=== PATIENT | male | born 1950 | race Caucasian/White ===

== ENCOUNTER 2021-09-23 12:52 | Emergency (ER) | payer MEDICARE, OTHER ==
[~2021-09-23] VITALS: Ht 193 cm; Wt 120.5 kg
[2021-09-23 13:00] VITALS: BP 147/82
[2021-09-23 13:42] LABS: BASOPHILS # (AUTO) 0.1 X10'3 (0-0.2); BASOPHILS % (AUTO) 1.3 % (0-1); EOSINOPHILS # (AUTO) 0.2 X10'3 (0-0.9); EOSINOPHILS % (AUTO) 3.3 % (0-6); HEMATOCRIT 41.7 % (42.0-52.0); HEMOGLOBIN 13.3 g/dl (14.0-17.9); LYMPHOCYTES # (AUTO) 1.2 X10'3 (1.1-4.8); LYMPHOCYTES % (AUTO) 21.9 % (21-51); MEAN CORPUSCULAR HEMOGLOBIN 25.6 PG (27.0-31.0); MEAN CORPUSCULAR VOLUME 80.1 FL (78-98); MEAN PLATELET VOLUME 7.1 FL (7.4-10.4); MONOCYTES # (AUTO) 0.6 X10'3 (0-0.9); MONOCYTES % (AUTO) 11.1 % (2-12); NEUTROPHILS # (AUTO) 3.3 X10'3 (1.8-7.7); NEUTROPHILS % (AUTO) 62.4 % (42-75); PLATELET COUNT 284 X10'3 (140-440); RED CELL DISTRIBUTION WIDTH 16.9 % (11.5-14.5); WHITE BLOOD COUNT 5.3 X10'3 (4.5-11.0)
[2021-09-23 13:55] LABS: ALANINE AMINOTRANSFERASE 24 U/L (12-78); ALBUMIN 3.1 G/DL (3.4-5.0); ALBUMIN/GLOBULIN RATIO 0.7 (1.1-1.5); ALKALINE PHOSPHATASE 94 IU/L (46-116); ANION GAP 8 (8-16); ASPARTATE AMINO TRANSFERASE 17 U/L (10-37); BILIRUBIN,TOTAL 0.6 MG/DL (0.1-1.0); BLOOD UREA NITROGEN 25 MG/DL (7-18); BUN/CREATININE RATIO 17.4 (5.4-32.0); CALCIUM 9.2 MG/DL (8.5-10.1); CHLORIDE 102 MMOL/L (99-107); CREATININE 1.44 MG/DL (0.60-1.10); POTASSIUM 3.9 MMOL/L (3.5-5.1); SODIUM 141 MMOL/L (135-145); TOTAL CARBON DIOXIDE 30.7 MMOL/L (24-32); TOTAL PROTEIN 7.6 G/DL (6.4-8.2); eGFR 48 ML/MIN
[2021-09-23 13:57] LABS: GLUCOSE 215 MG/DL (70-104)
[2021-09-23] MEDS ORDERED: MUPI22OI30 TOP (14:09)
[2021-09-23] MEDS ORDERED: CEPH250T PO (14:09)
== END 2021-09-23 14:29 | disposition home or self-care (01) ==
LOC: ER 12:53
DX: L03.115 Cellulitis of right lower limb (principal); E11.9 Type 2 diabetes mellitus without complications; Z79.2 Long term (current) use of antibiotics; Z79.899 Other long term (current) drug therapy; Z89.512 Acquired absence of left leg below knee
CPT/HCPCS: 36415; 80053; 85025; 85651; 99284

== ENCOUNTER 2022-01-02 13:51 | Emergency (ER) | payer MEDICARE ==
[~2022-01-02] VITALS: Ht 190.5 cm; Wt 122.7 kg
[2022-01-02 14:32] VITALS: BP 114/96
== END 2022-01-02 20:04 | disposition left against medical advice (07) ==
LOC: ER 13:52
DX: M79.661 Pain in right lower leg (principal); Z53.21 Procedure and treatment not carried out due to patient leaving prior to being seen by health care provider

== ENCOUNTER 2023-09-07 13:01 | Outpatient (CLI) | payer MEDICARE, OTHER ==
[~2023-09-07] VITALS: Ht 193 cm; Wt 112.9 kg
[2023-09-07 15:03] LABS: BASOPHILS % (AUTO) 0.7 % (0-1); EOSINOPHILS # (AUTO) 0.1 X10'3 (0-0.9); EOSINOPHILS % (AUTO) 4.3 % (0-6); LYMPHOCYTES # (AUTO) 0.4 X10'3 (1.1-4.8); LYMPHOCYTES % (AUTO) 15.5 % (21-51); MEAN CORPUSCULAR HEMOGLOBIN 30.7 PG (27.0-31.0); MEAN PLATELET VOLUME 6.4 FL (7.4-10.4); MONOCYTES # (AUTO) 0.4 X10'3 (0-0.9); MONOCYTES % (AUTO) 17.3 % (2-12); NEUTROPHILS # (AUTO) 1.6 X10'3 (1.8-7.7); NEUTROPHILS % (AUTO) 62.2 % (42-75); PRE OP HEMATOCRIT 38.7 % (42.0-52.0); PRE OP HEMOGLOBIN 12.8 g/dL (14.0-17.9); PRE OP PLATELET COUNT 221 X10'3 (140-440); RED BLOOD COUNT 4.16 X10'6 (4.70-6.10); RED CELL DISTRIBUTION WIDTH 14.5 % (11.5-14.5)
[2023-09-07 15:04] LABS: PRE OP WHITE BLOOD COUNT 2.5 10'3 (4.8-10.8)
[2023-09-07 15:15] LABS: PRE OP PROTIME 10.6 SECONDS (9.0-12.0)
[2023-09-07 15:16] LABS: ALBUMIN 3.3 G/DL (3.4-5.0); ALBUMIN/GLOBULIN RATIO 0.8 (1.1-1.5); ALKALINE PHOSPHATASE 75 IU/L (46-116); BLOOD UREA NITROGEN 21 MG/DL (7-18); BUN/CREATININE RATIO 16.9 (10.0-20.0); CALCIUM 8.2 MG/DL (8.5-10.1); CHLORIDE 104 MMOL/L (99-107); CREATININE 1.24 MG/DL (0.60-1.10); PRE OP ALT 23 U/L (30-65); PRE OP ANION GAP 10 (8-16); PRE OP AST 13 U/L (10-37); PRE OP BILIRUB, TOTAL 0.4 MG/DL (0.0-1.0); PRE OP POTASSIUM 3.9 MMOL/L (3.4-5.1); PRE OP SODIUM 144 MMOL/L (135-145); TOTAL CARBON DIOXIDE 30.4 MMOL/L (24-32); TOTAL PROTEIN 7.3 G/DL (6.4-8.2); eGFR 57 ML/MIN
[2023-09-07 15:20] LABS: PRE OP GLUCOSE 111 MG/DL (70-104)
[2023-09-07] MEDS ORDERED: GABA800T11 PO (15:24)
[2023-09-07] MEDS ORDERED: SIMV80TA89 PO (15:24)
[2023-09-07] MEDS ORDERED: MVI (15:24)
[2023-09-07] MEDS ORDERED: CARV-50 PO (15:24)
[2023-09-07] MEDS ORDERED: AMLO10TA13 PO (15:24)
[2023-09-07] MEDS ORDERED: FLO0.4C PO (15:24)
[2023-09-07] MEDS ORDERED: CLOP75TA34 PO (15:24)
[2023-09-07] MEDS ORDERED: LISI40TA13 PO (15:24)
[2023-09-07] MEDS ORDERED: DULA0.75 SQ (15:24)
[2023-09-07] MEDS ORDERED: ASPI81TA52 PO (15:24)
[2023-09-07] MEDS ORDERED: BICA50TA7 PO (15:24)
[2023-09-07] MEDS ORDERED: NITR0.4T48 SL (15:24)
[2023-09-07 15:33] LABS: TOTAL CELLS COUNTED 100
[2023-09-07 15:34] LABS: ANISOCYTOSIS FEW; PLATELET ESTIMATE NORMAL
[2023-09-07 15:35] LABS: POIKILOCYTOSIS FEW; POLYCHROMASIA FEW
[2023-09-07 15:43] LABS: HEMOGLOBIN A1C 6.4 % (4.5-6.2)
[2023-09-14] MEDS ORDERED: MULT-1085 PO (11:08)
[2023-09-15] MEDS ORDERED: ringers solution, lacted 1,000 ML IV SCH (05:30)
[2023-09-15] MEDS ORDERED: cefazolin 2gm/D5W 100mL 100 ML IV ONE (05:30)
[2023-09-15] MEDS ORDERED: albuterol 2.5 MG/3 ML nebule NEB ONE (05:30)
[2023-09-15] MEDS ORDERED: DOCUMENT DATE & TIME OF BETA-BLOCKER PO ONE (05:30)
[2023-09-15] MEDS ORDERED: tranexamic acid inj. 1,000 MG in normal saline IV soln 100ML IV ONE (05:30)
[2023-09-15] MEDS ORDERED: famotidine 20mg tablet PO ONE (05:30)
== END 2023-09-07 23:59 | disposition home or self-care (01) ==
LOC: LAB 13:01 → PAS IN 09-15 07:49 → UNDOADMIN 09-15 07:49 → EDSTATUS 09-15 11:00
PROVIDERS: ATTEND Specialist
DX: Z01.812 Encounter for preprocedural laboratory examination (principal); M19.012 Primary osteoarthritis, left shoulder; M25.512 Pain in left shoulder
CPT/HCPCS: 36415; 80053; 83036; 85007; 85025; 85610; 85730; 86885; 86900; 86901; 87081; J0690; J3490; J7120

== ENCOUNTER 2023-09-17 01:39 | Emergency (ER) | payer MEDICARE, OTHER ==
[~2023-09-17] VITALS: Ht 193 cm; Wt 113.0 kg
[~2023-09-17 01:39] MED LIST: AMLO10TA13 PO; ASPI81TA52 PO; BICA50TA7 PO; CARV-50 PO; CLOP75TA34 PO; DULA0.75 SQ; FLO0.4C PO; GABA800T11 PO; LISI40TA13 PO; MULT-1085 PO; NITR0.4T48 SL; SIMV80TA89 PO
[2023-09-17 01:49] VITALS: BP 154/90; PULSE 74; RESP 18; TEMP 98; O2SAT 95
[2023-09-17] MEDS ORDERED: CEPH-585 PO (05:57)
[2023-09-17] MEDS ORDERED: DOXY-356 PO (05:57)
[2023-09-17] MEDS: ondansetron 4mg rapidly disintigrating tab PO ONE (05:58)
[2023-09-17] MEDS: DOXYCYCLINE 100MG CAPSULE PO STA (05:58)
[2023-09-17] MEDS: ceFAZolin 1gm IM kit IM ONE (06:01)
== END 2023-09-17 12:51 | disposition left against medical advice (07) ==
LOC: ER 01:40
DX: E11.621 Type 2 diabetes mellitus with foot ulcer (principal); L97.519 Non-pressure chronic ulcer of other part of right foot with unspecified severity; L03.90 Cellulitis, unspecified; I25.10 Atherosclerotic heart disease of native coronary artery without angina pectoris; Z79.899 Other long term (current) drug therapy; Z95.5 Presence of coronary angioplasty implant and graft; Z98.890 Other specified postprocedural states
CPT/HCPCS: 73620; 87070; 87075; 87077; 87186; 96372; 99284; J0690

== ENCOUNTER 2025-04-30 19:31 | Emergency (ER) | payer MEDICARE, OTHER ==
[~2025-04-30] VITALS: Ht 190.5 cm; Wt 85.7 kg
[~2025-04-30 19:31] MED LIST changes: -FLO0.4C PO; +GABA-1555 PO; -GABA800T11 PO; -LISI40TA13 PO; +LISI40TA20 PO; +TAMS-55 PO
[2025-04-30 20:44] VITALS: BP 167/111
--- NOTE | 2025-04-30 20:59 | Physician Documentation ---
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 Has been present for some t tobias. Recently opened up. The particular palliating or aggravating factors. Denies any discharge. Denies any fever or chills. The gentleman has a very difficult psychosocial situation. He is taken care of his of 45 years who is suffering from scleroderma and is actively dying. He also has a take care of his 16-year-old autistic grandson because his daughter for in the half years of COVID. He states up front that unfortunately has not going to be able to be admitted. He is requesting home [facility] nurse and a PICC line placement for IV antibiotics. He denies any other complaints such as chest pain, difficulty breathing, nausea, vomiting, diarrhea, abdominal pain. He smokes, does not drink, does not do drugs. Tetanus within 5 years?: Yes Medication Reconciliation Allergies: Coded Allergies: No Known Allergies (Unverified , 04/30/25) Scheduled Amlodipine Besylate (Amlodipine Besylate), 1 TAB PO DAILY, (Reported) Aspirin (Aspirin EC), 1 TAB PO DAILY, (Reported) Bicalutamide (Bicalutamide), 1 TAB PO DAILY, (Reported) Carvedilol* (Coreg*), 1 TAB PO DAILY, (Reported) Clopidogrel Bisulfate (Clopidogrel), 1 TAB PO DAILY, (Reported) Dulaglutide (Trulicity), 1 DIS.SYR SQ Q7D, (Reported) Gabapentin (Gabapentin), 1 CAP PO QID, (Reported) Lisinopril* (Lisinopril*), 1 TAB PO DAILY, (Reported) Multivitamin (Multi Vitamin Daily), 1 TAB PO DAILY, (Reported) Simvastatin (Simvastatin), 0.5 TAB PO DAILY, (Reported) Tamsulosin Hcl* (Flomax*), 1 CAP PO DAILY, (Reported) Scheduled PRN Nitroglycerin (Nitroglycerin), 1 TAB SL Q5MIN PRN for chest pain, (Reported) Past Medical History Past Medical History: Coronary Artery Disease, Diabetes Past Surgical History: angioplasty, orthopedic surgeries Alcohol Use: None Drug Use: none Lives In: Home Review of Systems ROS 10 point review of systems was performed and unless noted above in HPI is negative for acute process/complaint. Physical Exam Vital Signs: Temperature: 97.6, Source: Oral, Heart Rate: 103, Respiratory Rate: 16, BP: 167/111, Pulse Oximetry: 98, Weight: 85.700 Physical Exam GENERAL: Awake, alert, oriented, GCS 15, no apparent distress, non-toxic appearing, answers questions, follows commands appropriately. Examined in bed 3. HEENT: Atraumatic, normocephalic, pupils equal, extraocular muscles intact, sclerae anicteric, mucus membranes moist, oropharynx is clear, no stridor. NECK: supple, full active range of motion, trachea midline, no thyromegaly, no lymphadenopathy, no JVD. CARDIOVASCULAR: Tachycardic and regular rate/rhythm, no murmurs/gallops/rubs, Pulses are 2+ in all extremities and symmetric. Capillary refill less than 2 seconds. PULMONARY: Nonlabored, good air movement ,no respiratory distress, speaking in full sentences, clear to auscultation bilaterally, no wheezing, no ronchi, no rales, no accessory muscle use. GASTROINTESTINAL: Soft, non-tender, non-distended, normal active bowel sounds, no organomegaly, no pulsatile masses, no CVA tenderness. NEUROLOGIC: Lucid with normal mental status. Normal facial symmetry. Moves all extremities symmetrically and with purpose. No truncal ataxia. Speech is fluid without evidence of dysarthria or aphasia, no focal deficits appreciated. MUSCULOSKELETAL: There is full range of motion of all extremities. There is no joint pain or joint swelling or joint erythema. There is no muscle pain or tenderness or swelling. EXTREMITIES: warm, well-perfused, no cyanosis, no clubbing, no edema, no acute deformities. Skin: warm, dry, no rashes or lesions, no jaundice, no petechiae orpurpura. No ecchymosis. PSYCHIATRIC: Normal affect, normal insight, normal concentration. Focused exam: [Right heel is examined. There is approximately a 2.5 cm round wound with a approximately 7 mm opening on the heel. No active bleeding, no purulent discharge. It is somewhat malodorous. Neurovascularly baseline distal.] Progress Results/Orders Results/Orders Orders - KT JIMENES DO Culture Blood (04/30/25 20:54) * Measure Wound & Document In (04/30/25 20:54) Culture Body Fluid Order (04/30/25 20:54) Foot, Complete (3vw Min) (04/30/25 20:54) Completed Orders - KT JIMENES DO Electrocardiogram (04/30/25 20:54) Cbc/Diff (04/30/25 20:54) ESR (04/30/25 20:54) C-Reactive Protein (04/30/25 20:54) MG (04/30/25 20:54) Hs Troponin I W Calculations (04/30/25 20:54) CMP (04/30/25 20:54) Lacticsepsis (04/30/25 20:54) Procalcitonin (04/30/25 20:54) Foot, Complete (3vw Min) (04/30/25 20:54) Vital Signs 04/30/25 04/30/25 04/30/25 19:36 20:30 20:44 Temp 97.6 97.6 Pulse 104 103 Resp 15 14 16 B/P (MAP) 187/100 167/111 (129) Pulse Ox 100 98 Laboratory Tests Test 04/30/25 21:31 White Blood Count 3.3 L Red Blood Count 4.23 L Hemoglobin 12.8 L Hematocrit 37.7 L Mean Corpuscular Volume 89.2 Mean Corpuscular Hemoglobin 30.2 Mean Corpuscular Hemoglobin Concent 33.9 Red Cell Distribution Width 14.7 H Platelet Count 185 Mean Platelet Volume 6.8 L Neutrophils (%) (Auto) 64.3 Lymphocytes (%) (Auto) 16.8 L Monocytes (%) (Auto) 14.8 H Eosinophils (%) (Auto) 2.8 Basophils (%) (Auto) 1.3 H Neutrophils # (Auto) 2.1 Lymphocytes # (Auto) 0.6 L Monocytes # (Auto) 0.5 Eosinophils # (Auto) 0.1 Basophils # (Auto) 0.0 CBC Comment Erythrocyte Sedimentation Rate 67 H Sodium Level 141 Potassium Level 4.9 Chloride Level 104 Carbon Dioxide Level 30.0 Anion Gap 7 L Blood Urea Nitrogen 17 Creatinine 1.56 H Estimated GFR/1.73 m2 44 BUN/Creatinine Ratio 10.9 Glucose Level 105 H Lactic Acid Level 1.1 Calcium Level 9.0 Magnesium Level 1.9 Total Bilirubin 0.5 Aspartate Amino Transf (AST/SGOT) 28 Alanine Aminotransferase (ALT/SGPT) 20 Alkaline Phosphatase 90 Troponin I High Sensitivity 14 C-Reactive Protein 3.43 H Total Protein 7.7 Albumin 3.1 L Globulin 4.6 H Albumin/Globulin Ratio 0.7 L Procalcitonin 2.39 H Chemistry Comments Medical Decision Making Findings Facility Status: ED Holds, ON LICENSE OF [facility] process The plan was discussed with the patient, who demonstrates clear understanding of the plan and is in agreement with the plan unless otherwise noted in the chart. All questions have been answered, all concerns were addressed unless otherwise documented. I was available throughout their ED stay for frequent reassessment and questions. Differential Diagnoses (considered and possible or likely): [Diabetic heel ulcer, cellulitis, osteomyelitis, less likely abscess, less likely necrotizing infection] ??Differential Diagnoses (considered and unlikely, not requiring evaluation currently): [See above] MDM Data Please see [facility] for the following: Independent Historians and external Records Review. Historian: [Patient] Independent Historians: ?[Record review] Medication Management: [Reviewed medication list] Social History and determinants: [Reviewed] Please see the body of the note for the following: Any independent interpretations of ECG, imaging studies. All vitals signs/haemodynamics, ordered tests were independently reviewed and interpreted by myself. Nursing triage complaint and vitals reviewed, additional nursing notes were reviewed as available and I agree unless otherwise noted or documented in contradiction in the chart Vital Signs: Independently reviewed Labs: Independently interpreted Imaging: Independently interpreted Old Medical Records: Independently reviewed, see [facility] for relevant summary and information Pulse Oximetry: [96%] interpreted as [normal on room air] by me [Icing Mixer: Tachycardic Rate, Regular rhythm, no ectopy, sinus tachycardia. reviewed and interpreted by me] Additionally notably showing: [Hemodynamics reviewed. The patient is slightly tachycardic, but not febrile, no evidence of hypotension respiratory distress. CBC shows leukopenia, no significant neutrophilic predominance. Hemoglobin is 12.8, which is borderline low. ESR is elevated at 67. Chemistry notable for DOE versus CKD. Both CRP and procalcitonin are elevated. Lactic acid however is normal. Troponin is normal. X-ray shows no obvious osteomyelitis, likely will require MRI.] Tests considered but not ordered include: [MRI can be done on an inpatient/outpatient basis] Social Determinants of Health Impact: Patient was evaluated in [facility], or [facility] [place] to healthcare due to below par ratio of patient to medical providers. [] Comorbid Conditions Impacting Present Evaluation and Care/Treatment: [History of BKA] Management Discussions with other Healthcare Providers: [None] Treatment and Disposition Medication Management (Given or considered): []. See EMR for details Consideration for Hospitalization/Escalation/Deescalation of Care: Admission for observation has been considered, [however the patient is able to tolerate p.o., their symptoms are controlled, they are able to rely on oral medications, and their chief complaint/diagnosis can be managed on outpatient basis.] ?ED Course:?[Admission was offered, we have discussed this, but he is very obv ious psychosocial issues are not allowing him to be admitted. counseling services manager consult was placed.] ?Shared decision making:?[Patient is hemodynamically stable for discharge home with follow with their primary care provider. [ ] Specific and cautious return precautions provided and discussed with full understanding. Any incidental findings were also discussed and follow up recommendations given. [] All questions answered. Patient/family were able to verbalize back return precautions. Patient/family agree to plan. Copies of imaging and laboratory studies were provided.] Code status:?FULL Please see the full Electronic Medical Record for full details of nursing documentation, medications list, other records of complete past medical history and conditions, vital signs, laboratory studies, and any radiologic study interpretations by radiologists. Portions of this note were completed using [employer] dictation software and as a result there may exist minor errors in spelling. I have reviewed elements of past family and social history and agree as included in note. Departure Disposition: 01 HOME / SELF CARE / HOMELESS Impression: Primary Impression: Diabetic foot ulcer Additional Impression: Wound cellulitis Condition: Stable Discharge Instructions: Crush Injury of the Foot, [id number] Additional Instructions: A consult with social services director was placed. They will contact you tomorrow regarding home health nurse and possible PICC line placement. Referrals: NO PRIMARY CARE PROVIDER (PCP) Prescriptions Sulfamethoxazole/Trimethoprim (Bactrim Ds Tablet) 800 Mg-160 Mg Tablet 1 TAB PO Q12H for 10 Days, #20 TAB Prov: KT JIMENES DO 04/30/25 Cephalexin*Monohydrate* (Keflex*) 500 Mg Capsule 1 CAP PO Q6H for 10 Days, #40 CAP Prov: KT JIMENES DO 04/30/25 Education Educated: Patient Educated regarding: diagnosis, treatment, prognosis, need for follow up Signature Scribe Signature: No scribe Attestation: Date: Apr 30, 2025 Time: 20:59 This note accurately reflects clinical decisions, work performed by myself, DO YUDY Pedersen NICHOLAS M DO Apr 30, 2025 20:59
--- NOTE | 2025-04-30 21:05 | ELECTROCARDIOGRAPH REPORT ---
[facility] Test Date: 2025-04-30 Test Time: 21:03:52 Pat Name: ANTHONY CHACON Department: [facility]-ER Patient ID: [facility]-[id number] Room: Gender: M Hose Mender: : 1950 Requested By: KT JIMENES Order Number: [id number] Reading MD: Measurements Intervals [place] Rate: 94 P: 58 SC: 201 QRS: -60 QRSD: 115 T: 70 QT: 366 QTc: 458 Interpretive Statements Sinus rhythm Multiple ventricular premature complexes Left anterior fascicular block ST elevation, consider inferior injury Please click the below link to view image of tracing.
--- NOTE | 2025-04-30 21:31 | RADIOLOGY REPORT ---
CLINICAL INDICATION: Right heel wound, question osteomyelitis, pain and swelling TECHNIQUE: FOOT CPLTDI FOOT, COMPLETE (3VW MIN) Comparison: DI FOOT,LIMITED (AP/LAT) on DOS: 09/17/23 FINDINGS/IMPRESSION: : Diffuse soft tissue swelling with a focal areas of ulceration along the plantar aspect of the hindfoot. No clear-cut erosive changes or periostitis to suggest osteomyelitis. No fracture or malalignment. Severe degenerative changes of the 1st MTP joint.
[2025-04-30 21:49] LABS: MEAN PLATELET VOLUME 6.8 FL (7.4-10.4); RED CELL DISTRIBUTION WIDTH 14.7 % (11.5-14.5)
[2025-04-30 22:09] LABS: CREATININE 1.56 MG/DL (0.60-1.10); TOTAL CARBON DIOXIDE 30.0 MMOL/L (24-32); eCRCL 50 ML/MIN; eGFR 44 ML/MIN
[2025-04-30] MEDS ORDERED: SULF1TAB49 PO (23:06)
[2025-04-30] MEDS ORDERED: CEPH-585 PO (23:06)
[2025-04-30 23:16] VITALS: PULSE 92; RESP 14; TEMP 97.6; O2SAT 96
== END 2025-04-30 23:18 | disposition home or self-care (01) ==
LOC: ER 19:32
DX: E11.621 Type 2 diabetes mellitus with foot ulcer (principal); E11.51 Type 2 diabetes mellitus with diabetic peripheral angiopathy without gangrene; F17.200 Nicotine dependence, unspecified, uncomplicated; I25.10 Atherosclerotic heart disease of native coronary artery without angina pectoris; Z79.899 Other long term (current) drug therapy; Z98.890 Other specified postprocedural states; Z79.82 Long term (current) use of aspirin; Z89.512 Acquired absence of left leg below knee
CPT/HCPCS: 36415; 73630; 80053; 83605; 83735; 84145; 84484; 85025; 85651; 86140; 87040; 93005; 99285